=== PATIENT | male | born 1995 | race Caucasian/White ===

== ENCOUNTER 2016-11-10 10:34 | Emergency (ER) | payer SELFPAY ==
[2016-11-10 10:56] LABS: BASO % 0.1 % (0-6); EOS % 0.4 % (0-6); GRAN % 74.5 % (47-80); HEMATOCRIT 41.3 % (42.0-52.0); HEMOGLOBIN 15.1 gm/dl (14.0-18.0); LYMPH % 17.8 % (16-45); MEAN CELL VOLUME 87.1 fl (81-97); MEAN CORPUSCULAR HEMOGLOBIN 31.9 pg (27-33); MEAN CORPUSCULAR HGB CONC 36.6 g/dl (32-36); MONO % 7.2 % (0-9); PLATELET COUNT 340 K/uL (130-400); RED BLOOD COUNT 4.74 M/uL (4.40-5.70); RED CELL DISTRIBUTION WIDTH 12.3 % (11.5-14.5); WHITE BLOOD COUNT W/O DIFF 13.6 K/uL (4.2-12.2)
[2016-11-10] MEDS ORDERED: 0.9 % SODIUM CHLORIDE 1,000 ML BAG IV ONE (11:03)
[2016-11-10 11:06] LABS: ALB/GLOB RATIO 1.8 (1.1-1.8); ALBUMIN 5.3 gm/dL (3.5-5.0); ALKALINE PHOSPHATASE 67 U/L (38-126); ALT/SGPT 52 U/L (21-72); ANION GAP 17.2 (7-16); AST/SGOT 26 U/L (17-59); BILIRUBIN,TOTAL 1.53 mg/dL (0.2-1.3); BLOOD UREA NITROGEN 25 mg/dL (9-20); CARBON DIOXIDE 17.8 mmol/L (22-30); CREATININE 1.1 mg/dL (0.66-1.25); EST GLOMERULAR FILTRATION RATE > 60 ml/min; GLUCOSE,RANDOM 98 mg/dL (70-110); TOTAL PROTEIN 8.2 gm/dL (6.3-8.2)
[2016-11-10] MEDS ORDERED: 0.9 % SODIUM CHLORIDE 1000ML 1,000 ML IV SCH ×2 (11:15→12:15)
[2016-11-10 11:41] LABS: URINE APPEARANCE CLEAR; URINE BILIRUBIN SMALL (NEGATIVE); URINE BLOOD NEGATIVE (NEGATIVE); URINE COLOR YELLOW; URINE GLUCOSE (UA) NEGATIVE (NEGATIVE); URINE KETONE 40 mg/dL (NEGATIVE); URINE LEUKOCYTE ESTERASE NEGATIVE (NEGATIVE); URINE NITRITE NEGATIVE (NEGATIVE); URINE UROBILINOGEN 0.2 E.U./dL (0.20 - 1.00)
[2016-11-10 11:44] LABS: AMPHETAMINE SCREEN URINE NOT DETECTED; BARBITURATE SCREEN URINE NOT DETECTED; BENZODIAZEPINE SCREEN URINE NOT DETECTED; COCAINE SCREEN URINE NOT DETECTED; METHADONE SCREEN URINE NOT DETECTED; METHAMPHETAMINE SCREEN NOT DETECTED; OPIATE SCREEN URINE NOT DETECTED; OXYCODONE SCREEN URINE NOT DETECTED; PHENCYCLIDINE SCREEN URINE NOT DETECTED; PROPOXYPHENE SCREEN URINE NOT DETECTED; THC SCREEN URINE DETECTED; TRICYCLIC ANTIDEPRESSANT SCRN NOT DETECTED
[2016-11-10] MEDS ORDERED: POTASSIUM CHLORIDE 20 MEQ TABLET PO ONE (11:46)
[2016-11-10] MEDS ORDERED: LORAZEPAM 2 MG/ML VIAL IV ONE (11:55)
--- NOTE | 2016-11-10 12:24 | Emergency Department Record ---
History of Present Illness - General Chief complaint: Heat Cramps/exhaustion/stroke Stated complaint: POSSIBLE HEAT STROKE Time Seen by Provider: 11/10/16 10:35 Source: Patient, RN notes reviewed Mode of Arrival: EMS - History of Present Illness Initial comments: weakness and breathing fast and was working in the hot part of the [employer] and EMS called and he was transported to the hospital. Patient started work last night at 10 pm and he was working overtime. Patient lightheaded and he felt hot all over . Patient said he had a sore throat prior to going to work last night. 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 Patient stated he smoked marijuana 2 days ago last and two alcoholic drinks two days ago. [facility] ankle surg times 2 and appendectomy. family history of heart disease. Patient was hyperventilating upon arrival to the ED with the EMS. RR20 Onset/Timin -: Hour(s) Location: Generalized - [place] Coma Scale Eye Response: (4) Open spontaneously Motor Response: (6) Obeys commands Verbal Response: (5) Oriented [place] Total: 15 - Related Data Home Medications Medication Instructions Recorded Confirmed Last Taken Cholecalciferol (Vitamin D3) 2,000 unit PO DAILY 11/10/16 11/10/16 11/10/16 [Vitamin D3] Naproxen Sodium [Aleve] 220 mg PO ASDIR 11/10/16 11/10/16 11/10/16 Allergies Allergy/AdvReac Type Severity Reaction Status Date / Time Sulfa (Sulfonamide Allergy SWELLING Verified 10/28/15 02:51 Antibiotics) (GENERAL) Travel Screening - Travel/Exposure Within Last 30 Days Have you traveled within the last 30 days?: No - Travel/Exposure Within Last Year Have you traveled outside the [place] in the last year?: No - Additonal Travel Details Have you been exposed to anyone with a communicable illness?: No - Travel Symptoms Symptom Screening: None Review of Systems Reviewed: No additional complaints except as noted below Constitutional: Reports: As per HPI. Denies: Chills, Fever, Malaise, Night sweats, Weakness, Weight change Eyes: Reports: As per HPI. Denies: Eye discharge, Eye pain, Photophobia, Vision change ENT: Reports: As per HPI. Denies: Congestion, Dental pain, Ear pain, Epistaxis , Hearing loss, Throat pain Respiratory: Reports: As per HPI. Denies: Cough, Dyspnea, Hemoptysis, Stridor, Wheezes Cardiovascular: Reports: As per HPI. Denies: Arrhythmia, Chest pain, Dyspnea on exertion, Edema, Murmurs, Orthopnea, Palpitations, Paroxysmal nocturnal dyspnea, Rheumatic Fever, Syncope Endocrine: Reports: As per HPI. Denies: Fatigue, Heat or cold intolerance, Polydipsia, Polyuria Gastrointestinal: Reports: As per HPI. Denies: Abdominal pain, Constipation, Diarrhea, Hematemesis, Hematochezia, Melena, Nausea, Vomiting Genitourinary: Reports: As per HPI. Denies: Dysuria, Frequency, Hematuria, Incontinence, Retention, Testicular pain, Testicular mass, Urgency Musculoskeletal: Reports: As per HPI. Denies: Arthralgia, Back pain, Gout, Joint swelling, Myalgia, Neck pain Skin: Reports: As per HPI. Denies: Bruising, Change in color, Change in hair/ nails, Lesions, Pruritus, Rash Neurological: Reports: As per HPI. Denies: Abnormal gait, Confusion, Headache, Numbness, Paresthesias, Seizure, Tingling, Tremors, Vertigo, Weakness Psychiatric: Reports: As per HPI. Denies: Anxiety, Auditory hallucinations, Depression, Homicidal thoughts, Suicidal thoughts, Visual hallucinations Hematological/Lymphatic: Reports: As per HPI. Denies: Anemia, Blood Clots, Easy bleeding, Easy bruising, Swollen glands Past Medical History - SOCIAL HISTORY Smoking Status: Never smoker Alcohol Use: Occasional Drug Use: Occasional Drug Use Detail:: Marijuana - RESPIRATORY Hx Respiratory Disorders: No - CARDIOVASCULAR Hx Cardio Disorders: No - NEURO Hx Neuro Disorders: No - GI Hx GI Disorders: No - Hx Genitourinary Disorders: No - ENDOCRINE Hx Endocrine Disorders: No - MUSCULOSKELETAL Hx Musculoskeletal Disorders: Yes Hx Arthritis: Yes Comment:: Spina bifida - PSYCH Hx Psych Problems: No - HEMATOLOGY/ONCOLOGY Hx Hematology/Oncology Disorders: No Family Medical History Any Significant Family History?: No Hx Heart Disease: Grandparents Hx HTN: Grandparents Physical Exam - General General Appearance: Alert, Oriented x3, Cooperative, No acute distress - Head Head exam: Normal inspection - Eye Eye exam: Normal appearance, PERRL Pupils: Normal accommodation - ENT ENT exam: Normal exam, Mucous membranes moist, Normal external ear exam, Normal orophraynx, TM's normal bilaterally Ear exam: Normal external inspection. negative: External canal tenderness Nasal Exam: Normal inspection. negative: Discharge, Sinus tenderness Mouth exam: Normal external inspection, Tongue normal Teeth exam: Normal inspection. negative: Dental caries Throat exam: Tonsillar erythema. negative: Tonsillar exudate - Neck Neck exam: Normal inspection, Full ROM. negative: Tenderness - Respiratory Respiratory exam: Normal lung sounds bilaterally. negative: Respiratory distress - Cardiovascular Cardiovascular Exam: Regular rate, Normal rhythm, Normal heart sounds - GI/Abdominal GI/Abdominal exam: Soft, Normal bowel sounds. negative: Tenderness - Rectal Rectal exam: Deferred - exam: Deferred - Extremities Extremities exam: Normal inspection, Full ROM, Normal capillary refill. negative: Tenderness - Back Back exam: Reports: Normal inspection, Full ROM. Denies: Muscle spasm, Rash noted, Tenderness - Neurological Neurological exam: Alert, Normal gait, Oriented X3, Reflexes normal - Psychiatric Psychiatric exam: Normal affect, Normal mood - Skin Skin exam: Dry, Intact, Normal color, Warm Course Vital Signs 11/10/16 11/10/16 11/10/16 10:36 11:00 11:30 Temperature 98.7 F 98.3 F Pulse Rate 84 Pulse Rate [ 85 82 Pulse Ox Probe] Respiratory 20 18 18 Rate Blood Pressure 127/55 Blood Pressure 114/57 124/81 [Left Arm] Pulse Ox 97 100 100 - Reevaluation(s) Reevaluation #1: feeling better 11/10/16 12:34 Medical Decision Making - Lab Data Result diagrams: 11/10/16 10:30 11/10/16 10:30 Lab Results 11/10/16 11/10/16 11/10/16 Range/Units 10:30 10:30 11:30 WBC 13.6 H (4.2-12.2) K/uL RBC 4.74 (4.40-5.70) M/uL Hgb 15.1 (14.0-18.0) gm/dl Hct 41.3 L (42.0-52.0) % MCV 87.1 (81-97) fl MCH 31.9 (27-33) pg MCHC 36.6 H (32-36) g/dl RDW 12.3 (11.5-14.5) % Plt Count 340 (130-400) K/uL MPV 10.0 (7.4-10.4) fl Gran % 74.5 (47-80) % Lymphocytes % 17.8 (16-45) % Monocytes % 7.2 (0-9) % Eosinophils % 0.4 (0-6) % Basophils % 0.1 (0-6) % Sodium 141 (136-145) mmol/L Potassium 2.9 L (3.5-5.1) mmol/L Chloride 106 (98-107) mmol/L Carbon Dioxide 17.8 L (22-30) mmol/L Anion Gap 17.2 H (7-16) BUN 25 H (9-20) mg/dL Creatinine 1.1 (0.66-1.25) mg/dL Estimated GFR > 60 ml/min Random Glucose 98 (70-110) mg/dL Calcium 9.6 (8.5-10.1) mg/dL Total Bilirubin 1.53 H (0.2-1.3) mg/dL AST 26 (17-59) U/L ALT 52 (21-72) U/L Alkaline Phosphatase 67 (38-126) U/L Total Protein 8.2 (6.3-8.2) gm/dL Albumin 5.3 H (3.5-5.0) gm/dL Globulin 2.9 (1.4-4.8) gm/dL Albumin/Globulin Ratio 1.8 (1.1-1.8) Urine Color Urine Appearance Urine pH (5.0-8.0) Ur Specific [place] (1.002-1.030) Urine Protein (NEGATIVE) Urine Glucose (UA) (NEGATIVE) Urine Ketones (NEGATIVE) Urine Blood (NEGATIVE) Urine Nitrite (NEGATIVE) Urine Bilirubin (NEGATIVE) Urine Urobilinogen (0.20 - 1.00) E.U./dL Ur Leukocyte Esterase (NEGATIVE) Urine Opiates Screen Not detected Ur Oxycodone Screen Not detected Urine Methadone Screen Not detected Ur Propoxyphene Screen Not detected Ur Barbituates Screen Not detected Ur Tricyclics Screen Not detected Ur Phencyclidine Scrn Not detected Ur Amphetamine Screen Not detected U Methamphetamines Scrn Not detected U Benzodiazepines Scrn Not detected Urine Cocaine Screen Not detected Urine Cannabis Screen Detected 11/10/16 Range/Units 11:30 WBC (4.2-12.2) K/uL RBC (4.40-5.70) M/uL Hgb (14.0-18.0) gm/dl Hct (42.0-52.0) % MCV (81-97) fl MCH (27-33) pg MCHC (32-36) g/dl RDW (11.5-14.5) % Plt Count (130-400) K/uL MPV (7.4-10.4) fl Gran % (47-80) % Lymphocytes % (16-45) % Monocytes % (0-9) % Eosinophils % (0-6) % Basophils % (0-6) % Sodium (136-145) mmol/L Potassium (3.5-5.1) mmol/L Chloride (98-107) mmol/L Carbon Dioxide (22-30) mmol/L Anion Gap (7-16) BUN (9-20) mg/dL Creatinine (0.66-1.25) mg/dL Estimated GFR ml/min Random Glucose (70-110) mg/dL Calcium (8.5-10.1) mg/dL Total Bilirubin (0.2-1.3) mg/dL AST (17-59) U/L ALT (21-72) U/L Alkaline Phosphatase (38-126) U/L Total Protein (6.3-8.2) gm/dL Albumin (3.5-5.0) gm/dL Globulin (1.4-4.8) gm/dL Albumin/Globulin Ratio (1.1-1.8) Urine Color Yellow Urine Appearance Clear Urine pH 6.0 (5.0-8.0) Ur Specific [place] >= 1.030 (1.002-1.030) Urine Protein 30 mg/dl H (NEGATIVE) Urine Glucose (UA) Negative (NEGATIVE) Urine Ketones 40 mg/dl H (NEGATIVE) Urine Blood Negative (NEGATIVE) Urine Nitrite Negative (NEGATIVE) Urine Bilirubin Small H (NEGATIVE) Urine Urobilinogen 0.2 (0.20 - 1.00) E.U./dL Ur Leukocyte Esterase Negative (NEGATIVE) Urine Opiates Screen Ur Oxycodone Screen Urine Methadone Screen Ur Propoxyphene Screen Ur Barbituates Screen Ur Tricyclics Screen Ur Phencyclidine Scrn Ur Amphetamine Screen U Methamphetamines Scrn U Benzodiazepines Scrn Urine Cocaine Screen Urine Cannabis Screen Disposition Clinical Impression: Dehydration, Hypokalemia Heat exhaustion Qualifiers: Encounter type: initial encounter Qualified Code(s): T67.5XXA - Heat exhaustion , unspecified, initial encounter Disposition: Home, Self-Care Condition: (1) Good Instructions: Heat Exhaustion (ED) Additional Instructions: follow up with family in one week drink lots of fluid eat bananna's Forms: Patient Portal Access Time of Disposition: 13:41 Quality - Quality Measures Quality Measures: N/A - Blood Pressure Screening Does Patient Have Any of the Following: No Blood Pressure Classification: Pre-Hypertensive BP Reading Systolic Measurement: 127 Diastolic Measurement: 55 Screening for High Blood Pressure: < Pre-Hypertensive BP, F/U Documented > [ [id number]] Pre-Hypertensive Follow-up Interventions: Follow-up with rescreen every year.
[2016-11-10 12:50] LABS: CKMB 1.4 ug/L (0-6)
[2016-11-10] MEDS ORDERED: AL HYDROX/MAG HYDROX 30ML UD PO ONE (13:11)
--- NOTE | 2016-11-11 09:45 | RADIOLOGY REPORT ---
EXAM: CHEST, TWO VIEWS HISTORY: HEAT STROKE, MUSCLE CRAMPING. TECHNIQUE: Two views of the chest were obtained. Comparison: None. FINDINGS: The lungs are clear. The cardiac silhouette, diaphragm and osseous structures are unremarkable for age. IMPRESSION: NEGATIVE CHEST EXAMINATION. JOB NUMBER: [id number] MTDD
== END 2016-11-10 14:04 | disposition home or self-care (01) ==
LOC: ER 10:34
DX: T67.5XXA Heat exhaustion, unspecified, initial encounter (principal); E87.6 Hypokalemia; E86.0 Dehydration; J02.9 Acute pharyngitis, unspecified; X30.XXXA Exposure to excessive natural heat, initial encounter; Y92.63 Factory as the place of occurrence of the external cause; Y99.0 Civilian activity done for income or pay
CPT/HCPCS: 71020; 80053; 80305; 81003; 82550; 82553; 85025; 87880; 93005; 93010; 96361; 96374; 99284; J7030

== ENCOUNTER 2018-12-07 21:10 | Emergency (ER) | payer SELFPAY ==
[2018-12-07] MEDS ORDERED: 0.9 % SODIUM CHLORIDE 1,000 ML BAG IV ONE (21:16)
--- NOTE | 2018-12-07 21:16 | Emergency Department Record ---
History of Present Illness - General Chief Complaint: Abdominal Pain Stated Complaint: ABD PAINS, LOST 50 POUNDS Time Seen by Provider: 12/07/18 21:15 Source: Patient - History of Present Illness Initial Comments: The patient states he has had a 50 pound weight loss since April this year, half of it in the past 2 months. He used to be a heavy drinker, he smokes marijuana daily. He saw his PCP Dr. Cain yesterday for intermittent episodes of not being 'engaged,' and fatigue. He denies fevers, chills, night sweats, bruising or easy bleeding. Tonight he at a hamburger and pork sandwich around 2029, and developed epigastric and RUQ abdominal pain about 30 minutes later, 10/10 severity, not radiating through to his back. It now is 3/10 severity. MD Complaint: Abdominal pain - Related Data Previous Rx's Medication Instructions Recorded Dicyclomine HCl [Bentyl] 10 mg PO Q8H #15 cap 12/08/18 Allergies Allergy/AdvReac Type Severity Reaction Status Date / Time Sulfa (Sulfonamide Allergy SWELLING Verified 10/28/15 02:51 Antibiotics) (GENERAL) Review of Systems Reviewed: No additional complaints except as noted below Constitutional: Reports: As per HPI. Denies: Chills, Fever, Malaise, Night sweats, Weakness, Weight change Eyes: Reports: As per HPI. Denies: Eye discharge, Eye pain, Photophobia, Vision change ENT: Reports: As per HPI. Denies: Congestion, Dental pain, Ear pain, Epistaxis, Hearing loss, Throat pain Respiratory: Reports: As per HPI. Denies: Cough, Dyspnea, Hemoptysis, Stridor, Wheezes Cardiovascular: Reports: As per HPI. Denies: Arrhythmia, Chest pain, Dyspnea on exertion, Edema, Murmurs, Orthopnea, Palpitations, Paroxysmal nocturnal dyspnea, Rheumatic Fever, Syncope Endocrine: Reports: As per HPI. Denies: Fatigue, Heat or cold intolerance, Polydipsia, Polyuria Gastrointestinal: Reports: As per HPI. Denies: Abdominal pain, Constipation, Diarrhea, Hematemesis, Hematochezia, Melena, Nausea, Vomiting Genitourinary: Reports: As per HPI. Denies: Dysuria, Frequency, Hematuria, Incontinence, Retention, Testicular pain, Testicular mass, Urgency Musculoskeletal: Reports: As per HPI. Denies: Arthralgia, Back pain, Gout, Joint swelling, Myalgia, Neck pain Skin: Reports: As per HPI. Denies: Bruising, Change in color, Change in hair/nails, Lesions, Pruritus, Rash Neurological: Reports: As per HPI. Denies: Abnormal gait, Confusion, Headache, Numbness, Paresthesias, Seizure, Tingling, Tremors, Vertigo, Weakness Psychiatric: Reports: As per HPI. Denies: Anxiety, Auditory hallucinations, Depression, Homicidal thoughts, Suicidal thoughts, Visual hallucinations Hematological/Lymphatic: Reports: As per HPI. Denies: Anemia, Blood Clots, Easy bleeding, Easy bruising, Swollen glands Past Medical History - SOCIAL HISTORY Smoking Status: Never smoker Drug Use: Occasional Drug Use Detail:: Marijuana - RESPIRATORY Hx Respiratory Disorders: No - CARDIOVASCULAR Hx Cardio Disorders: No - NEURO Hx Neuro Disorders: No - GI Hx GI Disorders: No - Hx Genitourinary Disorders: No - ENDOCRINE Hx Endocrine Disorders: No - MUSCULOSKELETAL Hx Musculoskeletal Disorders: Yes Hx Arthritis: Yes Comment:: Spina bifida - PSYCH Hx Psych Problems: No - HEMATOLOGY/ONCOLOGY Hx Hematology/Oncology Disorders: No Family Medical History Hx Heart Disease: Grandparents Hx HTN: Grandparents Physical Exam - General General Appearance: Alert, Oriented x3, Cooperative, No acute distress - Head Head exam: Normal inspection - Eye Eye exam: Normal appearance, PERRL, EOMI. negative: Conjunctival injection, Nystagmus, Scleral icterus Pupils: Normal accommodation - ENT ENT exam: Normal exam, Mucous membranes moist, Normal external ear exam, Normal orophraynx, TM's normal bilaterally Ear exam: Normal external inspection. negative: External canal tenderness Nasal Exam: Normal inspection. negative: Discharge, Sinus tenderness Mouth exam: Normal external inspection, Tongue normal Teeth exam: Normal inspection. negative: Dental caries Throat exam: Normal inspection. negative: Tonsillar erythema, Tonsillar exudate - Neck Neck exam: Normal inspection, Full ROM. negative: Lymphadenopathy, Meningismus, Tenderness - Respiratory Respiratory exam: Normal lung sounds bilaterally. negative: Respiratory dis tress - Cardiovascular Cardiovascular Exam: Regular rate, Normal rhythm, Normal heart sounds - GI/Abdominal GI/Abdominal exam: Soft, Normal bowel sounds, Tenderness (epigastric and RUQ tenderness) - Rectal Rectal exam: Deferred - exam: Deferred - Extremities Extremities exam: Normal inspection, Full ROM, Normal capillary refill. negative: Calf tenderness, Pedal edema, Tenderness - Back Back exam: Reports: Normal inspection, Full ROM. Denies: CVA tenderness (R), CVA tenderness (L), Muscle spasm, Rash noted, Tenderness - Neurological Neurological exam: Alert, CN II-XII intact, Normal gait, Oriented X3, Reflexes normal. negative: Motor sensory deficit - Psychiatric Psychiatric exam: Normal affect, Normal mood - Skin Skin exam: Dry, Intact, Normal color, Warm. negative: Rash Course - Reevaluation(s) Reevaluation #1: Feeling better after fluids and medications. Awaiting CT scan. 12/07/18 23:16 Reevaluation #2: 00:21 Patient is feeling epigastric discomfort again. Results of CT scan discussed. Levsin ordered. 12/08/18 00:21 Reevaluation #3: The patient feels better after levsin. Will send him home on bentyl for over the weekend and recheck Tuesday with PCP. 12/08/18 00:38 Medical Decision Making - Management Options MDM Management: No Additional Work-up Planned (PCP follow up for gall bladder ultrasound/HIDA through PCP) - Data Complexity MDM Data: Labs Ordered and/or Reviewed, X-Ray Ordered and/or Reviewed (Contrast CT Abd/Pelvis: Calcified lung granulomas compatible with chronic granuomatous disease.) - Lab Data Result diagrams: 12/07/18 21:20 12/07/18 21:20 Disposition Disposition: Discharge Clinical Impression: Abdominal pain, epigastric Disposition: Home, Self-Care Instructions: Abdominal Pain (ED) Additional Instructions: Home, rest. Push fluids. Low fat diet. Bentyl 10 mg three times daily for abdominal pain as needed. Follow up with Dr. Cain in office if no improvement tomorrow. Follow up next week (Tuesday) for further studies and recheck. Prescriptions: Dicyclomine HCl [Bentyl] 10 mg PO Q8H #15 cap Quality - Quality Measures Quality Measures: N/A - Blood Pressure Screening Does Patient Have Any of the Following: No Blood Pressure Classification: Pre-Hypertensive BP Reading Systolic Measurement: 122 Diastolic Measurement: 66 Screening for High Blood Pressure: < Normal BP, F/U Not Required > [G8783]
[2018-12-07 21:31] LABS: ABSOLUTE NEUTROPHIL COUNT 5.88; BASO % 0.3 % (0-6); EOS % 1.9 % (0-6); GRAN % 59.3 % (47-80); HEMATOCRIT 43.2 % (42.0-52.0); HEMOGLOBIN 15.1 gm/dl (14.0-18.0); LYMPH % 30.7 % (16-45); MEAN CELL VOLUME 88.5 fl (81-97); MEAN CORPUSCULAR HEMOGLOBIN 30.9 pg (27-33); MEAN PLATELET VOLUME 9.5 fl (7.4-10.4); MONO % 7.8 % (0-9); PLATELET COUNT 301 K/uL (130-400); RED BLOOD COUNT 4.88 M/uL (4.40-5.70); RED CELL DISTRIBUTION WIDTH 12.6 % (11.5-14.5); WHITE BLOOD COUNT W/O DIFF 9.9 K/uL (4.2-12.2)
[2018-12-07] MEDS ORDERED: ONDANSETRON HCL IV 4 MG/2 ML VIAL IVP ONE (21:37)
[2018-12-07] MEDS ORDERED: FAMOTIDINE IV 20 MG/2 ML VIAL IVP ONE (21:37)
[2018-12-07 21:39] LABS: BLOOD UREA NITROGEN 18 mg/dL (6-20); CREATININE 0.9 mg/dL (0.7-1.2); EST GLOMERULAR FILTRATION RATE > 60 mL/min; LIPASE 29 U/L (13-60); TOTAL PROTEIN 7.4 g/dL (6.6-8.7)
[2018-12-07 21:41] LABS: GLUCOSE,RANDOM 82 mg/dL (74-109)
[2018-12-07 21:44] LABS: ALBUMIN 4.9 g/dL (4.0-5.0); ALKALINE PHOSPHATASE 54 U/L (40-129); ALT/SGPT 13 U/L (<41); AST/SGOT 15 U/L (10.0-50.0)
[2018-12-07 21:49] LABS: BILIRUBIN,DIRECT < 0.2 mg/dL (0-0.3)
[2018-12-07 21:50] LABS: PROTHROMBIN TIME (PATIENT) 10.7 SECONDS (9.5-12.1)
[2018-12-07 21:52] LABS: URINE APPEARANCE CLEAR; URINE BILIRUBIN NEGATIVE (NEGATIVE); URINE BLOOD NEGATIVE (NEGATIVE); URINE COLOR YELLOW; URINE GLUCOSE (UA) NEGATIVE (NEGATIVE); URINE KETONE NEGATIVE (NEGATIVE); URINE LEUKOCYTE ESTERASE NEGATIVE (NEGATIVE); URINE NITRITE NEGATIVE (NEGATIVE); URINE PROTEIN NEGATIVE (NEGATIVE); URINE UROBILINOGEN 0.2 E.U./dL (0.20 - 1.00)
[2018-12-07 21:58] LABS: BARBITURATE SCREEN URINE NOT DETECTED; BENZODIAZEPINE SCREEN URINE NOT DETECTED; METHADONE SCREEN URINE NOT DETECTED; TRICYCLIC ANTIDEPRESSANT SCRN NOT DETECTED
[2018-12-07 21:59] LABS: AMPHETAMINE SCREEN URINE NOT DETECTED; COCAINE SCREEN URINE NOT DETECTED; METHAMPHETAMINE SCREEN NOT DETECTED; OPIATE SCREEN URINE NOT DETECTED; OXYCODONE SCREEN URINE NOT DETECTED; PHENCYCLIDINE SCREEN URINE NOT DETECTED; PROPOXYPHENE SCREEN URINE NOT DETECTED; THC SCREEN URINE DETECTED
[2018-12-08] MEDS ORDERED: HYOSCYAMINE SULFATE ODT 0.125 MG TAB.SUBL SL ONE (00:18)
--- NOTE | 2018-12-10 20:36 | CT SCAN REPORT ---
EXAM: CT SCAN ABDOMEN/PELVIS W CONTRAST HISTORY: EPIGASTRIC PAIN AFTER EATING AND 50 LB WEIGHT LOSS IN THE PAST NINE MONTHS. COMPARISON: None. TECHNIQUE: CT abdomen and pelvis with 100 mL Omnipaque-300. FINDINGS: Lungs: Lung bases are clear of any acute process. There are calcified granulomas in each lower lobe periphery. Liver, gallbladder, pancreas, and spleen: Liver appears normal. Gallbladder is normal. Pancreas and spleen appear normal. The biliary tree is nondilated. Retroperitoneum: Adrenal glands are normal. Both kidneys show no hydronephrosis or mass. Perfusion is normal. In the retroperitoneum, there is no sign of adenopathy or mass. Vascular structures: Aorta shows no aneurysm or dissection. Aortic branches are opacified with contrast. Inferior vena cava appears normal. The portal veins appear normal. Abdominal wall: Anterior abdominal wall musculature is intact. No hernias or lesions. Mesentery: There is no free air or fluid. There is also no sign of any mesenteric lymphadenopathy. GI tract: Stomach is unremarkable. The small bowel shows no distention or wall thickening. The terminal ileum is normal. Colon: The colon is not well distended. There is no indication of any distention, suspicious wall thickening, mass, or inflammation. Sigmoid colon shows no diverticulitis. Rectum: The rectum is normal. Appendix: The appendix is absent. Bladder: The bladder is normal. Prostate gland is unremarkable. Musculoskeletal: Pelvic musculature appears unremarkable. The bony pelvis appears intact. In the lumbar spine, there is marked narrowing of the L4-5 disc space and mild narrowing of the L5-S1. Vertebral bodies are intact without suspicious finding. It is noted that the neural foramen at the L4-5 level on the right is narrowed due to bony changes. This could cause impingement of exiting nerve root. IMPRESSION: NO SIGN OF ANY SPECIFIC ACUTE INFLAMMATORY, OBSTRUCTIVE, OR NEOPLASTIC PROCESS WITHIN THE ABDOMEN OR PELVIS JOB NUMBER: [id number] [facility]
== END 2018-12-08 00:47 | disposition home or self-care (01) ==
LOC: ER 21:10
DX: R10.13 Epigastric pain (principal); R63.4 Abnormal weight loss
CPT/HCPCS: 99284 ×2; 96374; 96375; 83690; 85025; 85730; 85610; 80076; 86140; 80048; 81003; 80305; 74177; Q9967; J3490; J1980; J2405; J7030